=== PATIENT | male | born 1955 | race Caucasian/White ===

== ENCOUNTER 2021-05-21 15:18 | Inpatient (IN) ==
[2021-05-21] MEDS ORDERED: Mag Hydrox/Al Hydrox/Simeth 30 ML UDC PO PRN (17:53)
[2021-05-21] MEDS ORDERED: Ondansetron ODT 4 MG TAB.RAPDIS SL PRN (17:53)
[2021-05-21] MEDS ORDERED: Naloxone 0.4 MG/ML INJ IVP PRN (17:53)
[2021-05-21] MEDS ORDERED: Perflutren Lipid Microsphere 1.3 ML in 0.9 % Sodium Chloride 8.7 ML IVP PRN (18:17)
[2021-05-21] MEDS ORDERED: Nitroglycerin 0.4 MG TAB.SUBL SL PRN (18:20)
[2021-05-21] MEDS ORDERED: Albuterol 2.5 MG/3 ML NEBULIZER IH PRN (18:20)
[2021-05-21] MEDS ORDERED: Morphine Sulfate 2 MG/ML SYRINGE IVP PRN (18:20)
[2021-05-21] MEDS: predniSONE 20 MG TABLET PO SCH (18:52)
[2021-05-21] MEDS: Ipratropium/Albuterol Neb 3 ML IH SCH (19:24)
[2021-05-22] MEDS: Ipratropium/Albuterol Neb 3 ML IH SCH ×7 (00:28→23:19)
[2021-05-22 05:02] LABS: INR 1.2
[2021-05-22 05:14] LABS: Alanine Aminotransferase 20 Units/L (7-52); Albumin 3.7 g/dL (3.5-5.7); Albumin/Globulin Ratio 1.2 (1.1-2.2); Alkaline Phosphatase 87 Units/L (34-104); Aspartate Amino Transferase 55 Units/L (13-39); BUN/Creatinine Ratio 18 (6-26); Bilirubin,Total 0.3 mg/dL (0.3-1.0); Blood Urea Nitrogen 11 mg/dL (8-23); Calcium 8.5 mg/dL (8.6-10.3); Carbon Dioxide 25 mEq/L (23-29); Chloride 105 mEq/L (98-107); Globulin 3.2 g/dL (2.4-3.5); Glucose 165 mg/dL (70-105); Magnesium 2.3 mg/dL (1.6-2.6); Osmolality,Calculated 285 (280-300); Potassium 3.7 mEq/L (3.5-5.1); Sodium 136 mEq/L (136-145); Total Protein 6.9 g/dL (6.4-8.9); eGFR For African Americans > 60 (> 60); eGFR For Non-African Americans > 60 (> 60)
[2021-05-22] MEDS: *HR* Heparin 5,000 UNIT/ML VIAL SQ SCH ×2 (05:53→17:35)
[2021-05-22] MEDS: predniSONE 20 MG TABLET PO SCH (10:39)
[2021-05-22] MEDS: cefTRIAXone 1,000 MG in Water for inj. (sterile) 10 ML IVP SCH (10:39)
[2021-05-22] MEDS: Azithromycin 500 MG in 0.9 % Sodium Chloride 250 ML IVPB SCH (10:39)
[2021-05-22] MEDS ORDERED: Petrolatum, white 28.35 GM TUBE TP ONE ×2 (11:43→21:44)
[2021-05-22] MEDS: Petrolatum, White OINT.PACK TP ONE ×2 (15:50→22:18)
[2021-05-22] MEDS: Melatonin 3 MG TABLET PO PRN (22:17)
[2021-05-23] MEDS: Ipratropium/Albuterol Neb 3 ML IH SCH ×8 (04:41→23:31)
[2021-05-23] MEDS: *HR* Heparin 5,000 UNIT/ML VIAL SQ SCH ×2 (09:55→17:45)
[2021-05-23] MEDS: predniSONE 20 MG TABLET PO SCH (09:55)
[2021-05-23] MEDS: cefTRIAXone 1,000 MG in Water for inj. (sterile) 10 ML IVP SCH (09:56)
[2021-05-23] MEDS: Azithromycin 500 MG in 0.9 % Sodium Chloride 250 ML IVPB SCH (09:57)
[2021-05-23] MEDS: Gabapentin 300 MG CAPSULE PO SCH ×2 (17:46→22:01)
[2021-05-23] MEDS: risperiDONE 1 MG TABLET PO SCH (22:01)
[2021-05-23] MEDS: Sucralfate 1 GM TABLET PO SCH (22:02)
[2021-05-23] MEDS: amLODIPine 5 MG TABLET PO SCH (22:02)
[2021-05-24 02:14] LABS: Basophils % 0.2 %; Eosinophils % 0.1 %; Hematocrit 33.2 % (37.5-50.1); Hemoglobin 10.9 g/dL (12.9-16.9); Immature Granulocytes % 0.7 % (0-4); Lymphocytes # 2.3 K/mcL (0.6-4.6); Lymphocytes % 21.5 %; Mean Corpuscular HGB Conc 32.8 g/dL (31.6-35.5); Mean Corpuscular Hemoglobin 32.2 pg (28.0-33.3); Mean Corpuscular Volume 97.9 fL (83.0-100.0); Mean Platelet Volume 8.6 fL (9.4-12.4); Monocytes # 0.9 K/mcL (0.0-1.3); Monocytes % 8.3 %; Neutrophils # 7.4 K/mcL (1.6-8.9); Platelet Count 270 K/mcL (140-400); Red Blood Count 3.39 M/mcL (4.19-5.50); Red Cell Distribution Width 13.2 % (11.5-14.5); Segmented Neutrophils % 69.2 %; White Blood Count 10.7 K/mcL (4.3-11.1)
[2021-05-24 02:36] LABS: BUN/Creatinine Ratio 25 (6-26); Blood Urea Nitrogen 15 mg/dL (8-23); Calcium 8.4 mg/dL (8.6-10.3); Carbon Dioxide 24 mEq/L (23-29); Chloride 106 mEq/L (98-107); Glucose 109 mg/dL (70-105); Osmolality,Calculated 287 (280-300); Potassium 3.8 mEq/L (3.5-5.1); Sodium 138 mEq/L (136-145); eGFR For African Americans > 60 (> 60); eGFR For Non-African Americans > 60 (> 60)
[2021-05-24 02:47] LABS: Thyroid Stimulating Hormone 2.027 mcIU/mL (0.340-5.600)
[2021-05-24] MEDS: Ipratropium/Albuterol Neb 3 ML IH SCH ×6 (03:52→23:40)
[2021-05-24] MEDS: *HR* Heparin 5,000 UNIT/ML VIAL SQ SCH ×2 (06:10→18:20)
[2021-05-24] MEDS: predniSONE 20 MG TABLET PO SCH (09:07)
[2021-05-24] MEDS: Gabapentin 300 MG CAPSULE PO SCH ×3 (09:07→20:41)
[2021-05-24] MEDS: cefTRIAXone 1,000 MG in Water for inj. (sterile) 10 ML IVP SCH (09:07)
[2021-05-24] MEDS: Furosemide 20 MG TABLET PO SCH (09:07)
[2021-05-24] MEDS: Loratadine 10 MG TABLET PO SCH (09:07)
[2021-05-24] MEDS: Azithromycin 500 MG in 0.9 % Sodium Chloride 250 ML IVPB SCH (09:08)
[2021-05-24] MEDS: Budesonide/Formoterol 160/4.5 1 PUFF INH IH SCH ×3 (15:25→20:00)
[2021-05-24] MEDS: Melatonin 3 MG TABLET PO PRN (20:40)
[2021-05-24] MEDS: risperiDONE 1 MG TABLET PO SCH (20:40)
[2021-05-24] MEDS: Sucralfate 1 GM TABLET PO SCH (20:40)
[2021-05-24] MEDS: amLODIPine 5 MG TABLET PO SCH (20:41)
[2021-05-25] MEDS: Ipratropium/Albuterol Neb 3 ML IH SCH ×4 (04:10→16:09)
[2021-05-25] MEDS ORDERED: Ibuprofen 400 MG TABLET PO ONE (05:35)
[2021-05-25] MEDS: *HR* Heparin 5,000 UNIT/ML VIAL SQ SCH (05:52)
[2021-05-25] MEDS: Budesonide/Formoterol 160/4.5 1 PUFF INH IH SCH (07:44)
[2021-05-25] MEDS: Loratadine 10 MG TABLET PO SCH (08:28)
[2021-05-25] MEDS: Gabapentin 300 MG CAPSULE PO SCH ×2 (08:29→15:05)
[2021-05-25] MEDS: predniSONE 20 MG TABLET PO SCH (08:29)
[2021-05-25] MEDS: cefTRIAXone 1,000 MG in Water for inj. (sterile) 10 ML IVP SCH (08:29)
[2021-05-25] MEDS: Furosemide 20 MG TABLET PO SCH (08:29)
[2021-05-25] MEDS ORDERED: Azithromycin 250 MG TABLET PO SCH (09:00)
[2021-05-25 15:36] VITALS: BP 143/83; PULSE 93; TEMP 98.1
[2021-05-25 16:13] VITALS: O2SAT 95
== END 2021-05-25 16:47 | disposition other institution (70) | DRG 871 ==
LOC: 2ANU → SUATTDRO 19:09
PROVIDERS: ADMIT Family Medicine; ATTEND Student in an Organized Health Care Education/Training Program